=== PATIENT | male | born 1975 | race Two or more races ===

== ENCOUNTER 2016-11-25 12:12 | Emergency (ER) | payer OTHER ==
[~2016-11-25] VITALS: Ht 182.9 cm; Wt 90.7 kg
[2016-11-25 12:26] VITALS: BP 134/74
[2016-11-25] MEDS: FLUORESCEIN SOD 1 MG TEST STRIP LEFTEYE ONE (13:33)
[2016-11-25] MEDS: TETRACAINE HCL 0.5% OPTH(EYE) SOLN 4ML LEFTEYE ONE (13:33)
== END 2016-11-25 13:51 | disposition home or self-care (01) ==
LOC: ER 12:12
DX: T15.02XA Foreign body in cornea, left eye, initial encounter (principal); S05.02XA Injury of conjunctiva and corneal abrasion without foreign body, left eye, initial encounter; W45.8XXA Other foreign body or object entering through skin, initial encounter; Y93.89 Activity, other specified; Y99.8 Other external cause status; Y92.89 Other specified places as the place of occurrence of the external cause
CPT/HCPCS: 65220; 65222

== ENCOUNTER 2019-08-10 14:13 | Emergency (ER) | payer OTHER ==
[~2019-08-10] VITALS: Ht 182.9 cm; Wt 95.3 kg
[2019-08-10] MEDS ORDERED: IBUPROFEN 800 MG TAB PO ONE (15:30)
[2019-08-10 16:50] VITALS: BP 118/74
== END 2019-08-10 15:59 | disposition home or self-care (01) ==
LOC: ER 14:13
DX: S39.012A Strain of muscle, fascia and tendon of lower back, initial encounter (principal); E78.5 Hyperlipidemia, unspecified; X58.XXXA Exposure to other specified factors, initial encounter; Y93.89 Activity, other specified; Y92.89 Other specified places as the place of occurrence of the external cause; Y99.8 Other external cause status
CPT/HCPCS: 72100

== ENCOUNTER 2021-04-04 15:02 | Emergency (ER) | payer OTHER ==
[~2021-04-04] VITALS: Ht 182.9 cm; Wt 95.3 kg
[2021-04-04 16:00] VITALS: BP 117/78
[2021-04-04] MEDS ORDERED: FLUORESCEIN SOD OPTH TEST STRIP OP ONE (16:00)
[2021-04-04] MEDS ORDERED: TETRACAINE HCL 0.5% OPTH(EYE) SOLN 4ML EACHEYE ONE (16:00)
== END 2021-04-04 16:48 | disposition home or self-care (01) ==
LOC: ER 15:02
DX: T15.01XA Foreign body in cornea, right eye, initial encounter (principal); E78.5 Hyperlipidemia, unspecified; W26.8XXA Contact with other sharp object(s), not elsewhere classified, initial encounter; Y93.89 Activity, other specified; Y92.89 Other specified places as the place of occurrence of the external cause; Y99.8 Other external cause status
CPT/HCPCS: 65222

== ENCOUNTER 2024-12-02 10:49 | Emergency (ER) | payer BC, OTHER ==
[~2024-12-02] VITALS: Ht 165.1 cm; Wt 147.7 kg
[2024-12-02 11:05] VITALS: BP 134/83; PULSE 94; RESP 16; TEMP 98.3; O2SAT 98
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
--- NOTE | 2024-12-02 12:15 | DVH ---
CT HEAD WITHOUT CONTRAST INDICATION: FALL EXAM DATE: 12/02/2024 11:41 AM COMPARISON: None RADIATION DOSE: CTDIvol: 58 mGy, DLP: 1128 mGy*cm PROCEDURE: CT scans of the head were obtained from the vertex to the skull base. Sagittal and coronal reconstructions were provided. All CT scans at this medical facility are performed using dose modulation techniques as appropriate t o a performed exam including the following: Automated exposure control was utilized; adjustment of th e MA and/or KV according to patient size; and use of iterative reconstruction technique. FINDINGS: There is sulcal and ventricular prominence. The brainshows normal morphology and wheatley-whi te matter differentiation, without intracranial hemorrhage, extra-axial fluid collection, mass effect or acute large vessel infarct. The ventricles are normal in size. The basal cisterns are patent. The skull and visible facial bones are intact. The paranasal sinuses, mastoid air cells and middle ear c avities are well-aerated. There is a left frontal scalp hematoma.. IMPRESSION: Left frontal scalp hematoma.. No acute intracranial abnormality.
== END 2024-12-02 12:57 | disposition home or self-care (01) ==
LOC: ER 10:49
DX: S06.0XAA Concussion with loss of consciousness status unknown, initial encounter (principal); S00.03XA Contusion of scalp, initial encounter; E78.5 Hyperlipidemia, unspecified; W22.8XXA Striking against or struck by other objects, initial encounter; Y93.89 Activity, other specified; Y92.89 Other specified places as the place of occurrence of the external cause; Y99.8 Other external cause status
CPT/HCPCS: 70450